=== PATIENT | male | born 1990 | race Caucasian/White ===

== ENCOUNTER 2017-09-03 11:44 | Emergency (ER) | payer BC, SELFPAY ==
--- NOTE | 2017-09-03 12:27 | RAD ---
RIGHT HAND THREE VIEWS: INDICATIONS: Right hand pain. FINDINGS: There is a mildly angulated fracture at the fifth metacarpal neck with overlying soft tissue swelling . No significant displacement. There is subtle fracture lucency at the posteromedial aspect of the articular surface. IMPRESSION: Proximal fifth metacarpal fracture with intraarticular extension, slight angulation, and overlying so ft tissue swelling. POS: CET
== END 2017-09-03 12:23 | disposition home or self-care (01) ==
LOC: SCSER 11:44
DX: S62.366A Nondisplaced fracture of neck of fifth metacarpal bone, right hand, initial encounter for closed fracture (principal); F17.200 Nicotine dependence, unspecified, uncomplicated; X58.XXXA Exposure to other specified factors, initial encounter
CPT/HCPCS: 29125

== ENCOUNTER 2018-05-05 14:59 | Emergency (ER) | payer SELFPAY | END 2018-05-05 15:17 | disposition home or self-care (01) | LOC: ERS 14:59 | DX: Z04.1 Encounter for examination and observation following transport accident (principal); F17.210 Nicotine dependence, cigarettes, uncomplicated | CPT/HCPCS: 99283 ==

== ENCOUNTER 2019-05-03 23:22 | Emergency (ER) | payer OTHER, SELFPAY ==
[2019-05-03 23:51] LABS: #Basophils 0.1 thou/uL (0.0-0.2); #Eosinphils 0.1 thou/uL (0.0-0.7); #Monocytes 0.5 thou/uL (0.11-0.59); #Neutrophils 4.8 thou/uL (1.40-6.50); %Basophils 0.9 % (0.0-1.0); %Eosinophils 1.6 % (0.0-10.0); %Lymphocytes 26.6 % (21.0-51.0); %Neutrophils 63.9 % (42.0-75.0); Hemoglobin 15.6 g/dL (14.0-18.0); Mean Corpuscular Volume 88.4 fL (78.0-98.0); Mean Platelet Volume 6.2 fL (7.4-10.4); Platelet Count 255 thou/uL (130-400); RBC Distribution Width 11.8 % (11.5-14.5); Red Blood Cell (RBC) Count 5.19 mill/uL (4.70-6.10); White Blood Cell (WBC) Count 7.6 thou/uL (4.8-10.8)
--- NOTE | 2019-05-03 23:56 | RAD ---
Portable frontal chest radiograph: 05/03/2019 COMPARISON: None HISTORY: Chest pain FINDINGS: Lungs are clear. Heart and mediastinal contours appear within normal limits. IMPRESSION: No acute findings.
[2019-05-04 00:10] LABS: ALT (SGPT) 28 U/L (8-55); AST (SGOT) 26 U/L (5-34); Albumin 4.3 g/dL (3.5-5.0); Alkaline Phosphatase 74 U/L (40-150); Anion Gap 12 mmol/L (10-20); BUN (Urea Nitrogen) 11 mg/dL (8.9-20.6); Bilirubin, Total 0.6 mg/dL (0.2-1.2); CK (CPK) 155 U/L (30-200); Calc. Creatinine Clearance 0 mL/min (70-130); Calcium 9.5 mg/dL (7.8-10.44); Carbon Dioxide 27 mmol/L (22-29); Chloride 102 mmol/L (98-107); Estimated GFR-MDRD Greater than 90; Globulin 3.3 g/dL (2.4-3.5); Glucose 95 mg/dL (70-105); Lipase 17 U/L (8-78); Potassium 3.9 mmol/L (3.5-5.1); Protein, Total 7.6 g/dL (6.0-8.3); Sodium 137 mmol/L (136-145)
== END 2019-05-04 00:50 | disposition home or self-care (01) ==
LOC: ERS 23:22
DX: R07.9 Chest pain, unspecified (principal); F17.210 Nicotine dependence, cigarettes, uncomplicated
CPT/HCPCS: 71045; 80053; 82550; 83690; 84484; 85025; 93005

== ENCOUNTER 2019-12-04 11:06 | Emergency (ER) | payer OTHER ==
[2019-12-04] MEDS ORDERED: Ketorolac Tromethamine 60 MG/2 ML VIAL ONE (11:26)
--- NOTE | 2019-12-04 11:44 | RAD ---
XR Ankle Lt 3 View STANDARD HISTORY: Injury, left ankle pain FINDINGS: Soft tissue swelling is present. The ankle mortise is maintained. No fracture or dislocation is ident ified.
== END 2019-12-04 12:00 | disposition home or self-care (01) ==
LOC: ERS 11:06
DX: S93.402A Sprain of unspecified ligament of left ankle, initial encounter (principal); F17.210 Nicotine dependence, cigarettes, uncomplicated; X50.9XXA Other and unspecified overexertion or strenuous movements or postures, initial encounter; Y99.0 Civilian activity done for income or pay
CPT/HCPCS: 96372; J1885